=== PATIENT | male | born 1955 | race Caucasian/White ===

== ENCOUNTER 2022-12-05 06:40 | Day surgery (SDC) | payer MEDICARE, OTHER ==
[~2022-12-05] VITALS: Ht 180.3 cm; Wt 98.1 kg
[2022-12-05] MEDS ORDERED: AMLODIPINE BESYL5 MG (06:51)
[2022-12-05] MEDS ORDERED: ROSUVASTATIN CAL5 MG (06:51)
[2022-12-05] MEDS ORDERED: ASPI81CH PO (06:52)
[2022-12-05] MEDS ORDERED: METHYL B-12 AN1 EACH (06:52)
[2022-12-05] MEDS ORDERED: FAMC500 (06:53)
[2022-12-05] MEDS ORDERED: CHLO25B (06:53)
[2022-12-05] MEDS ORDERED: MAGNESIUM OXID500 MG (06:53)
[2022-12-05 08:41] VITALS: BP 149/90
--- NOTE | 2022-12-05 08:42 | NUR ---
12/05/22 0842 Sheree Ku IV DC'D, CATH INTACT. PT TOLERATED WELL. COBAN/GAUZE IN PLACE
== END 2022-12-05 08:42 | disposition home or self-care (01) ==
LOC: ORSCSDS 06:40
PROVIDERS: Surgery
PROC: 0DBM8ZX Excision of Descending Colon, Via Natural or Artificial Opening Endoscopic, Diagnostic (ICD-10-PCS; principal; 2022-12-05 08:00)
PROC: 0DBK8ZX Excision of Ascending Colon, Via Natural or Artificial Opening Endoscopic, Diagnostic (ICD-10-PCS; principal; 2022-12-05 08:00)
DX: Z12.11 Encounter for screening for malignant neoplasm of colon (principal); K63.5 Polyp of colon; D12.4 Benign neoplasm of descending colon; I10 Essential (primary) hypertension; E66.9 Obesity, unspecified; Z68.30 Body mass index [BMI] 30.0-30.9, adult; Z79.899 Other long term (current) drug therapy
CPT/HCPCS: 88305; J2704; J7120